=== PATIENT | female | born 1940 | race Caucasian/White ===

== ENCOUNTER → 2016-10-14 | Outpatient (CLI) | payer MEDICARE, BC ==
[~2016-10-14] MED LIST: ALLEGRA ALLERG180 MG PO; ALLEGRA PO; ALLEGRA180 MG PO; ASPIRIN PO; ASPIRIN81 M1 PO; ASPIRIN81 MG PO; BENTYL10 MG PO; CIPRO PO; DARVOCET-N 1001 TA1 PO; DARVOCET-N 1001 TAB PO; DICYCLOMINE HCL20 MG PO; DIFLUCAN PO; DIOVAN PO; DIOVAN160 MG PO; FLAGYL PO; FLEXERIL10 MG PO; LEVAQUIN PO; LORTAB 5/500 TA1 TA1 PO; LOSARTAN POTAS100 MG PO; MECLIZINE HCL12.5 M2 PO; METOPROLOL SUCC50 MG PO; MULTI VITAMIN1 EACH; MULTI-VIT/MIN P1 TAB PO; MULTI-VITAMIN1 EAC1 PO; MULTIVITAMIN1 UDCAP PO; NEXIUM PO; NILSTAT PO; NORCO 5/325 TAB1 TAB PO; OMEPRAZOLE20 M2 PO; OMEPRAZOLE40 MG PO; PRILOSEC20 MG PO; TOPROL XL 50 MG50 M1 PO; TOPROL XL PO; TYL325 PO; TYLOX 5/500 CAP1 CAP PO; ULTRAM PO; VICODIN; VICODIN 5/1 TAB 5/50 PO
--- NOTE | ~2016-10-14 | CR63 ---
[facility] A Service of [facility] RADIOLOGY TEXT RESULTS PATIENT: HAIDER GARCIA LOCATION: [facility] : 42 UNIT #: [id number] AGE: [address]: PARISA MAYO APRN SEX: F ORDER DR: [id number] [facility] [address] [place], [place] [address] [id number] O MR#: [id number] Acc #: [id number] NAME: HAIDER GARCIA. : 1940 SEX: F STUDY DATE/TIME: 10/14/2016 15:25 UNIT: [facility] ROOM: STUDY DESCRIPTION: CR Chest 2 View Attending Physician: Parisa Mayo Np Referring Physician: Parisa Mayo Np Ordering Physician: Parisa Mayo Np Primary Care Physician: Jethro Garcia M.D. MEDICAL IMAGING REPORT This report is preliminary unless electronic signature is present EXAM PA and lateral chest Date: 10/14/2016 HISTORY 76-year-old female with persistent cough, productive cough. Symptoms present for 1 week. History of kidney cancer. Hypertension. COMPARISON PA and lateral chest radiograph 05/29/2016 FINDINGS No acute airspace disease. Heart size within normal limits. No pleural effusion or pneumothorax. No acute or suspicious osseous abnormalities. IMPRESSION No acute chest findings. No significant change compared to 05/29/2016. Dictated by... Myrtle Acevedo M.D. THIS IS AN ELECTRONICALLY VERIFIED REPORT Myrtle Acevedo M.D. at 10/15/2016 10:02 PM ANDREA/viktor TD: 10/15/2016 07:14 JOB #: [id number] MEDICAL IMAGING REPORT Page 1 of 1 COPY
== END | disposition home or self-care (01) ==
LOC: CRAD 15:08
DX: R05 Cough (principal)
CPT/HCPCS: 71020

== ENCOUNTER → 2016-10-19 | Outpatient (CLI) | payer MEDICARE, BC ==
--- NOTE | ~2016-10-19 | MY11 ---
[facility] A Service of [facility] RADIOLOGY TEXT RESULTS PATIENT: HAIDER GARCIA LOCATION: [facility] : 42 UNIT #: [id number] AGE: [address]: Jethro Garcia MD SEX: F ORDER DR: [id number] [facility] [address] [place], [place] [address] [id number] O MR#: [id number] Acc #: [id number] NAME: HAIDER GARCIA. : 1940 SEX: F STUDY DATE/TIME: 10/19/2016 14:28 UNIT: [facility] ROOM: STUDY DESCRIPTION: MY Mammogram Screening Dig Noman Attending Physician: Jethro Garcia M.D. Referring Physician: Jethro Garcia M.D. Ordering Physician: Jethro Garcia M.D. Primary Care Physician: Jethro Garcia M.D. MEDICAL IMAGING REPORT This report is preliminary unless electronic signature is present EXAM Digital screening mammogram 10/19/2016 HISTORY 76-year-old woman, no risk elevation. Annual screen. COMPARISON STUDIES Mammograms date to 08/20/2008 with most recent screening mammogram 10/15/2015. FINDINGS Digital imaging of each breast was completed utilizing screening protocol. Review includes FDA-approved CAD device. Breast parenchyma is fatty replaced bilaterally. Small circumscribed nodule just deep to the left nipple is again noted and unchanged. I see no interval occurring mass. There are no suspicious microcalcifications and no suspicious architectural deformity. IMPRESSION Stable benign mammogram. Annual screening recommended. BIRADS II Patients over the age of 40 are entered into a reminder system with target due date for the next mammogram. A result letter will also be sent to the patient. BIRADS: 2 - Benign finding Dictated by... Lloyd Duke M.D. THIS IS AN ELECTRONICALLY VERIFIED REPORT Lloyd Duke M.D. at 10/20/2016 10:10 AM [facility] A Service of [facility] RADIOLOGY TEXT RESULTS PATIENT: HAIDER GARCIA LOCATION: [facility] : 42 UNIT #: [id number] AGE: [address]: Jethro Garcia MD SEX: F ORDER DR: Savanah TD: 10/19/2016 16:08 JOB #: [id number] MEDICAL IMAGING REPORT Page 1 of 1 COPY
== END | disposition home or self-care (01) ==
LOC: CWCC 14:21
DX: Z12.31 Encounter for screening mammogram for malignant neoplasm of breast (principal)
CPT/HCPCS: G0202

== ENCOUNTER 2016-11-12 14:36 | Observation (INO) | payer MEDICARE, BC ==
--- NOTE | ~2016-11-12 | DS ---
Unit #: [id number] #: [id number] Patient: HAIDER GARCIA [id number] [facility]. [place], [place] [address] [id number] MR#: [id number] NAME: HAIDER GARCIA ROOM: 56 Age: 76 Sex: F Admission Date: 11/12/2016 : 1940 Discharge Date: 11/14/2016 Attending Physician: Eunice Estrada M.D. Primary Care Physician: Jethro Garcia M.D. DISCHARGE SUMMARY DIAGNOSIS ON ADMISSION Dizziness. DIAGNOSES ON DISCHARGE 1. Dizziness, possible vestibular neuronitis. 2. Hypertension. 3. Hyperlipidemia. 4. Gastroesophageal reflux disease. CONSULTATION Dr. Gonzalez in cardiac consultation. DIAGNOSTIC STUDIES CARDIOVASCULAR: Patient had a 2D echocardiogram done, which revealed ejection fraction of 60%. There was mild mitral regurgitation present and moderate tricuspid regurgitation present. LABORATORY: Patient's creatinine was 0.9, sodium 142, and potassium was 3.8. CBC revealed platelets of 105. TSH was 1.1. BNP was 99. IMAGING: CT scan of head did not reveal any acute findings. Chest x-ray was normal. HOSPITAL COURSE This 76-year-old patient was admitted to [facility] with dizziness. Details are as per admission H and P. Patient was seen by Dr. Gonzalez in consultation. Patient had orthostatic hypotension done, which was negative. She was started on meclizine. An event monitor was ordered. Patient is feeling much better today and wants to go home. May be followed up on outpatient basis with cardiology. RECOMMENDATIONS ON DISCHARGE 1. Condition is stable. 2. Activity as tolerated. 3. Followup: Patient is advised to follow up with primary care physician in one week and follow up with cardiology as recommended. 4. We will arrange home health regarding home safety assessment. 5. Patient was advised to call primary care physician or go to ER if her condition changes. MEDICATIONS 1. Tylenol 650 mg p.o. q.6 hours p.r.n. 2. Meclizine 12.5 mg p.o. t.i.d. p.r.n. Unit #: [id number] #: [id number] Patient: HAIDER GARCIA 3. Patient's blood pressure meds are as per cardiology. 4. Multivitamin 1 tablet p.o. daily. 5. Enteric-coated aspirin 81 mg p.o. daily. 6. Prilosec 20 mg p.o. daily. 7. Please make note that patient's metoprolol and losartan are as per cardiology. Dictated by... Angela Ansari TD: 11/14/2016 07:40 JOB #: [id number] DISCHARGE SUMMARY Page 1 of 1 X Eunice Estrada MD X DISCHARGE SUMMARY
--- NOTE | ~2016-11-12 | CR72 ---
[facility] A Service of [facility] & [facility] RADIOLOGY TEXT RESULTS PATIENT: HAIDER GARCIA LOCATION: [facility] [address] : 42 UNIT #: [id number] AGE: [address]: JORDAN WALTON MD SEX: F ORDER DR: [id number] [facility] [address] [place], [place] [address] [id number] E MR#: [id number] Acc #: [id number] NAME: HAIDER GARCIA. : 1940 SEX: F STUDY DATE/TIME: 11/12/2016 15:02 UNIT: [facility] ROOM: STUDY DESCRIPTION: CR Chest Single View Portable Attending Physician: Vanesa Cardenas M.D. Ordering Physician: Vanesa Cardenas M.D. Primary Care Physician: Jethro Garcia M.D. MEDICAL IMAGING REPORT This report is preliminary unless electronic signature is present EXAM Portable chest HISTORY Dizziness and lightheadedness with near syncope onset today. TECHNIQUE Single view of the chest was obtained and compared with 10/14/2016. FINDINGS A single AP portable view of the chest shows both lungs to be clear. The heart is normal in size. The mediastinal contour is normal. No significant bone abnormalities are seen. IMPRESSION Normal portable chest. Dictated by... Rosas Herbert M.D. THIS IS AN ELECTRONICALLY VERIFIED REPORT Rosas Herbert M.D. at 11/13/2016 7:11 AM SHAYAN/yessy TD: 11/12/2016 18:12 JOB #: [id number] MEDICAL IMAGING REPORT Page 1 of 1 COPY
--- NOTE | ~2016-11-12 | CT71 ---
[facility] A Service of [facility] RADIOLOGY TEXT RESULTS PATIENT: HAIDER GARCIA LOCATION: [facility] [address] : 42 UNIT #: [id number] AGE: [address]: Eunice Estrada MD SEX: F ORDER DR: [id number] [facility] [address] [place], [place] [address] [id number] I MR#: [id number] Acc #: [id number] NAME: HAIDER GARCIA. : 1940 SEX: F STUDY DATE/TIME: 11/12/2016 16:34 UNIT: [facility] ROOM: [address] STUDY DESCRIPTION: CT Head Wo Contrast Attending Physician: Joy Ash M.D. Ordering Physician: Vanesa Cardenas M.D. Primary Care Physician: Jethro Garcia M.D. MEDICAL IMAGING REPORT This report is preliminary unless electronic signature is present EXAM CT head, noncontrast, 11/12/16. HISTORY 76-year-old female in the ED complaining of new onset dizziness, unsteady gait beginning earlier this morning. TECHNIQUE CT examination of the head without IV contrast. This CT exam was performed with one or more of the following radiation dose reduction techniques: automatic exposure control, adjustment of mA and/or kV according to patient size, and iterative reconstruction. FINDINGS No acute intracranial abnormality is identified. No evidence of intracranial hemorrhage, mass, mass effect, cerebral edema or hydrocephalus. Incidental note is made of likely empty sella turcica. Atheromatous calcification within the carotid siphons. IMPRESSION No acute intracranial abnormality. Dictated by... Anil Sharif M.D. THIS IS AN ELECTRONICALLY VERIFIED REPORT Anil Sharif M.D. at 11/13/2016 4:35 PM Gricel TD: 11/12/2016 22:28 JOB #: [id number] [facility] A Service [facility] RADIOLOGY TEXT RESULTS PATIENT: HAIDER GARCIA LOCATION: [facility] [address] : 42 UNIT #: [id number] AGE: [address]: Eunice Estrada MD SEX: F ORDER DR: MEDICAL IMAGING REPORT Page 1 of 1 COPY
--- NOTE | ~2016-11-12 | EKG ---
PATIENT: HAIDER GARCIA UNIT #: [id number] Ventricular Rate: 57 BPM Atrial Rate: 57 BPM P-R Interval: 166 ms QRS Duration: 86 ms Q-T Interval: 414 ms QTC Calculation(Bezet): 402 ms P Appling: 39 degrees Calculated R Appling: -2 degrees Calculated T Appling: 4 degrees Diagnosis Line: Sinus bradycardia Diagnosis Line: Voltage criteria for left ventricular hypertrophy Diagnosis Line: Abnormal ECG Diagnosis Line: No previous ECGs available Diagnosis Line: Confirmed by VIJAY HAMILTON MD ([id number]) on Diagnosis Line: 11/14/2016 1:10:52 PM INTERPRETING MD: DANIEL
--- NOTE | ~2016-11-12 | CO ---
Unit #: [id number] #: [id number] Patient: HAIDER GARCIA [id number] [address] [address] [id number] I MR#: [id number] NAME: HAIDER GARCIA. ROOM: 566 Age: 76 Sex: F Admission Date: 11/12/2016 : 1940 Attending Physician: Eunice Estrada M.D. Primary Care Physician: Jethro Garcia M.D. Consultation Date: 11/13/2016 CONSULTATION REPORT REASON FOR CONSULTATION Dizziness. HISTORY OF PRESENT ILLNESS This is a 76-year-old white female who became dizzy about 1:30 p.m. She said she felt staggered when she walked. She laid down for a while, took a nap but still did not feel well. She felt as if she could pass out. She complained of a headache but no nausea or chest pain. She has some visual changes. She came to the emergency room for evaluation where she was found to be mildly hypertensive with a blood pressure of 170/79 mmHg. She was bradycardic with a heart rate in the upper 50s. Head CT was negative. From a cardiac standpoint the patient had a cardiac catheterization in 2010, which was normal. She has risk factors for ischemic heart disease that includes hypertension, hyperlipidemia and obesity. She has no history of rheumatic fever. PAST MEDICAL HISTORY 1. Cardiac catheterization 07/09/2010 shows normal coronary arteries. 2. Hypertension. 3. Hyperlipidemia. 4. GERD. 5. Lifelong nonsmoker. 6. Recent cell carcinoma, status post laparoscopic nephrectomy in 2006. PAST SURGICAL HISTORY 1. Hysterectomy. 2. Right laparoscopic nephrectomy. 3. Partial colon resection. 4. Oophorectomy. 5. Eye surgery. SOCIAL HISTORY The patient lives at home alone. She denies a history of tobacco, alcohol, or illicit drug use. FAMILY HISTORY Negative for coronary artery disease. ALLERGIES Penicillin. HOME MEDICATIONS 1. Metoprolol succinate 50 mg daily. 2. Losartan 100 mg daily. Unit #: [id number] #: [id number] Patient: HAIDER GARCIA 3. Omeprazole 20 mg b.i.d. 4. Fexofenadine 180 mg daily. 5. Aspirin 81 mg daily. 6. Multivitamin 1 tablet daily. REVIEW OF SYSTEMS CONSTITUTIONAL: Negative for fever or chills. Reports no fatigue or weakness. HEENT: Positive for dizziness and visual disturbances. Positive for headaches. CARDIOVASCULAR: Has no symptoms of angina. Denies palpitations. No paroxysmal nocturnal dyspnea or orthopnea. Reports no syncope. RESPIRATORY: Negative for dyspnea, cough, or hemoptysis. GASTROINTESTINAL: No abdominal pain, nausea, or vomiting. EXTREMITIES: Negative for lower extremity edema. PHYSICAL EXAMINATION VITAL SIGNS: Blood pressure 170/79, heart rate 58, temperature 98.8, BMI 37. GENERAL: This is an obese, 76-year-old white female who is in no acute respiratory distress. NEUROLOGIC: She is awake but oriented. There is no focal weakness. NECK: Trachea is midline. No thyromegaly or lymphadenopathy. No jugular venous distention. HEART: S1 and S2 heart sounds are normal. No murmurs, rubs, or clicks. Regular rate and rhythm. LUNGS: Clear without rales, rhonchi or wheezes. ABDOMEN: Soft, nontender with bowel sounds present. EXTREMITIES: Without leg edema. SKIN: Warm and dry. DIAGNOSTIC STUDIES LABORATORY STUDIES: Hemoglobin 14.3, hematocrit 44.4, platelet count 127, white count 4.9. Sodium 143, potassium 4.0, BUN 15, creatinine 1.1, glucose 120. Troponin less than 0.05. Magnesium 2.0, BNP 99. IMAGING STUDIES: Chest x-ray shows no active disease. CT of the head negative. CARDIOVASCULAR: Electrocardiogram shows sinus bradycardia at a rate of 57 BPM with left ventricular hypertrophy. IMPRESSION 1. Dizziness. 2. Headache. 3. Questionable vertigo. 4. Hypertension. 5. Hyperlipidemia. 6. Normal coronaries per cardiac catheterization in 2010. PLAN 1. Cardiology was consulted for evaluation of dizziness. We will obtain orthostatic blood pressures to rule out orthostatic hypotension. 2. TSH and lipid profile will be obtained. 3. Start on meclizine for dizziness. 4. 2D Echocardiogram shows an ejection fraction of 60% with mild mitral regurgitation and moderate tricuspid regurgitation. Unit #: [id number] #: [id number] Patient: HAIDER GARCIA 5. Right ventricular systolic pressure 35-40 mmHg. 6. Outpatient event monitor to rule out arrhythmias. 7. Will follow the patent with you. Thank you for allowing us to assist with this patient's care. Dictated by... Jono Cardona A.P.R.N. for Angela Salmeron/mitesh TD: 11/16/2016 06:36 JOB #: [id number] CONSULTATION REPORT Page 1 of 1 X Jono Cardona APRN X CONSULTATION REPORT
--- NOTE | ~2016-11-12 | HP ---
Unit #: [id number] #: [id number] Patient: HAIDER GARCIA [id number] [address] [address] [id number] E MR#: [id number] NAME: HAIDER GARCIA ROOM: Age: 76 Sex: F Admission Date: 11/12/2016 : 1940 Attending Physician: Vanesa Cardenas M.D. Primary Care Physician: Jethro Garcia M.D. HISTORY AND PHYSICAL CHIEF COMPLAINT Dizziness. HISTORY OF PRESENT ILLNESS The patient is a 76-year-old female with a history of hypertension, hyperlipidemia, and gastroesophageal reflux disease, brought to the emergency room complaining of dizziness and lightheadedness. The patient stated that patient's dizziness started around 1:30 in the afternoon today. The patient described the dizziness as the head is spinning. The patient was found to have bradycardia with a heart rate of 55 to 56. The patient had a CT of the head and chest x-ray that were both negative and is being admitted for the above reasons. PAST MEDICAL HISTORY 1. Hypertension. 2. Hyperlipidemia. 3. Gastroesophageal reflux disease. PAST SURGICAL HISTORY 1. Hysterectomy. 2. Right kidney removed. 3. Partial colon removal. 4. Ovary removed. HOME MEDICATIONS 1. Metoprolol. 2. Losartan. 3. Omeprazole. 4. Fexofenadine. 5. Aspirin. 6. Multivitamins. ALLERGIES Penicillin. SOCIAL HISTORY No history of smoking cigarettes, drinking alcohol, or any illicit drug abuse. FAMILY HISTORY Reviewed and none. REVIEW OF SYSTEMS A 14-point review of systems was performed and only pertinent positive Unit #: [id number] #: [id number] Patient: HAIDER GARCIA findings are as described above. The remaining are negative. PHYSICAL EXAMINATION GENERAL: Patient is lying in bed not in acute distress. VITAL SIGNS: Temperature 97.6, pulse 58, respiratory rate 16, blood pressure 115/86, and saturating 98% on room air. HEENT: Head atraumatic, normocephalic. Pupils equal, round, and reactive to light and accommodation. Extraocular movements are intact. NECK: Supple. LUNGS: Decreased air entry at the bases. HEART: Regular rate and rhythm, bradycardic. ABDOMEN: Soft. Positive bowel sounds. EXTREMITIES: No cyanosis, no clubbing. NEUROLOGIC: Alert, awake, and oriented. No gross focal motor deficit. DIAGNOSTIC STUDIES LABORATORY: Glucose 120, BUN 15, creatinine 1.1, sodium 143, potassium 4, chloride 111, bicarb 28, calcium 9.4, magnesium 2, total protein 6.9, albumin 3.8, AST 31, ALT 24, and alkaline phosphatase 61. Lipase 40. BNP is 99. INR is 1.1. WBC 4.9, hemoglobin 14.3, hematocrit 44.4, and platelets 127,000. Urinalysis is negative. IMAGING: CT of the head shows no acute intracranial findings. Chest x-ray is negative. ASSESSMENT 1. Dizziness. 2. Bradycardia. 3. Hypertension. PLAN Admit the patient to observation with telemetry. Continue with IV fluids of normal saline at 100 mL/hour. Will have a Cardiology consult. Hold the metoprolol, check the echocardiogram, and repeat the labs again in the morning. Further recommendations will follow. Dictated by Angela Whaley TD: 11/12/2016 20:11 JOB #: [id number] HISTORY AND PHYSICAL Page 1 of 1 X JORDAN WALTON MD X HISTORY AND PHYSICAL
[~2016-11-12 14:36] MED LIST changes: -ALLEGRA ALLERG180 MG PO; -ASPIRIN81 MG PO; -LOSARTAN POTAS100 MG PO; -MECLIZINE HCL12.5 M2 PO; -MULTI VITAMIN1 EACH; -TYL325 PO
[2016-11-12 15:08] LABS: EOSINOPHIL# 0.3 X10e3 (0-0.7); EOSINOPHIL% 5.4 % (0.0-7.0); HEMATOCRIT 44.4 % (35.0-45.0); HEMOGLOBIN 14.3 gm/dL (12.0-16.0); LYMPHOCYTE# 1.8 X10e3 (1.0-3.5); LYMPHOCYTE% 36.1 % (17.0-45.0); MEAN CELL VOLUME 93.8 FL (83-96); MEAN CORPUSCULAR HEMOGLOBIN 30.3 PG (28-34); MEAN CORPUSCULAR HGB CONC 32.3 g/dL (30-36); MEAN PLATELET VOLUME 10.3 FL (6.5-11.5); MONOCYTE# 0.4 X10e3 (0-1.0); MONOCYTE% 7.3 % (3.0-12.0); NEUTROPHIL# 2.5 X10e3 (1.5-7.1); NEUTROPHIL% 50.2 % (40-75); PLATELET COUNT 127 X10e3 (140-420); RED BLOOD COUNT 4.73 X10e (3.90-5.30); RED CELL DISTRIBUTION WIDTH 13.3 % (11.0-15.5); WHITE BLOOD COUNT 4.9 X10e3 (4.0-10.5)
[2016-11-12 15:12] LABS: DIFF IND NO
[2016-11-12 15:21] LABS: POC - CKMB 1.1 ng/mL (0.0-7.9); POC - TROPONIN <0.05 ng/mL (<=0.05)
[2016-11-12 15:32] LABS: INR 1.1; PARTIAL THROMBOPLASTIN TIME 25.3 SECONDS (23.5-31.3); PROTHROMBIN TIME (PATIENT) 11.4 SECONDS (9.6-11.5)
[2016-11-12 15:33] LABS: URINE SOURCE CLEAN CATCH
[2016-11-12 15:36] LABS: ALBUMIN SERUM 3.8 g/dL (3.5-5.0); BILIRUBIN, DIRECT 0.1 mg/dL (0.0-0.2); BILIRUBIN,INDIRECT 0.5 mg/dL (0.0-0.9); BILIRUBIN,TOTAL 0.6 mg/dL (0.2-2.0); BUN/CREATININE RATIO 13.63; CALCIUM SERUM 9.4 mg/dL (8.4-10.2); CREATININE SERUM 1.1 mg/dL (0.6-1.4); GLOM FILT RATE Estimated 49.4 mL/min (>60); PROTEIN TOTAL SERUM 6.9 g/dL (6.0-8.3); URINE APPEARANCE CLEAR; URINE BILIRUBIN NEG (NEG); URINE BLOOD NEG (NEG); URINE COLOR YELLOW; URINE GLUCOSE NEG (NEG); URINE KETONE NEG (NEG); URINE LEUKOCYTE ESTERASE NEG (NEG); URINE NITRATE NEG (NEG); URINE PH 6.5 (5-8); URINE PROTEIN NEG (NEG); URINE SPECIFIC GRAVITY 1.004 (1.003-1.035); URINE UROBILINOGEN 0.2 MG/DL (NEG)
[2016-11-12 15:41] LABS: CULTURE INDICATED? NO
[2016-11-12 17:55] LABS: POC - CKMB <1.0 ng/mL (0.0-7.9); POC - TROPONIN <0.05 ng/mL (<=0.05)
[2016-11-12] MEDS ORDERED: METOPROLOL SUCC50 MG PO (18:26)
[2016-11-12] MEDS ORDERED: LOSARTAN POTAS100 MG PO (18:26)
[2016-11-12] MEDS ORDERED: OMEPRAZOLE20 M2 PO (18:26)
[2016-11-12] MEDS ORDERED: MULTI VITAMIN1 EACH (18:27)
[2016-11-12] MEDS ORDERED: ASPIRIN81 MG PO (18:27)
[2016-11-12] MEDS ORDERED: ALLEGRA ALLERG180 MG PO (18:27)
[2016-11-13 13:31] LABS: HEMATOCRIT 41.6 % (35.0-45.0); HEMOGLOBIN 13.6 gm/dL (12.0-16.0); MEAN CELL VOLUME 92.8 FL (83-96); MEAN CORPUSCULAR HEMOGLOBIN 30.3 PG (28-34); MEAN CORPUSCULAR HGB CONC 32.7 g/dL (30-36); MEAN PLATELET VOLUME 11.2 FL (6.5-11.5); RED BLOOD COUNT 4.48 X10e (3.90-5.30); RED CELL DISTRIBUTION WIDTH 12.9 % (11.0-15.5); WHITE BLOOD COUNT 4.2 X10e3 (4.0-10.5)
[2016-11-13 13:51] LABS: BUN/CREATININE RATIO 13.33; CALCIUM SERUM 8.8 mg/dL (8.4-10.2); CREATININE SERUM 0.9 mg/dL (0.6-1.4); POTASSIUM 3.8 mmol/L (3.5-5.1)
[2016-11-13 14:08] LABS: CHOLESTEROL 150 mg/dL (0-200); HDL CHOLESTEROL 42 mg/dL (35-95); LDL CHOLESTEROL 91 mg/dL (-130); LDL/HDL RATIO 2 RATIO (0-4); TRIGLYCERIDES 84 mg/dL (10-160)
[2016-11-14] MEDS ORDERED: TYL325 PO (15:09)
[2016-11-14] MEDS ORDERED: MECLIZINE HCL12.5 M2 PO (15:10)
== END 2016-11-14 16:40 | disposition home or self-care (01) ==
LOC: CED 14:36 → CEDOF 18:15 → C5C 11-13 05:53
PROVIDERS: Internal Medicine; Nurse Practitioner; Student in an Organized Health Care Education/Training Program
DX: R42 Dizziness and giddiness (principal); I10 Essential (primary) hypertension; E78.5 Hyperlipidemia, unspecified; K21.9 Gastro-esophageal reflux disease without esophagitis; I08.1 Rheumatic disorders of both mitral and tricuspid valves; R00.1 Bradycardia, unspecified; Z88.0 Allergy status to penicillin; Z79.82 Long term (current) use of aspirin; Z90.710 Acquired absence of both cervix and uterus; Z90.721 Acquired absence of ovaries, unilateral; Z90.5 Acquired absence of kidney; Z90.49 Acquired absence of other specified parts of digestive tract
CPT/HCPCS: 36415; 70450; 71010; 80048; 80061; 80076; 81003; 82553; 83690; 83735; 83880; 84443; 84484; 85025; 85027; 85610; 85730; 93005; 93306; 96372; 99285; G0378; J1650